=== PATIENT | female | born 1965 | race Caucasian/White ===

== ENCOUNTER → 2020-10-09 | Day surgery (SDC) | payer OTHER ==
[~2020-10-09] MED LIST: AMLODIPINE BESY10 MG PO; COLESTID 1GM TAB1 GM PO; LAMICTAL100 MG PO; LISINOPRIL-HCT1 EAC1 PO; PHENERGAN25 M1 PO; PRINIVIL10 MG PO; PROBIOTIC1 EACH PO; PROTONIX 40MG T40 MG PO; VITAMIN D310 MCG PO; XANAX0.25 MG PO
== END | disposition home or self-care (01) ==
LOC: FAS 06:58
DX: K29.50 Unspecified chronic gastritis without bleeding (principal); K21.9 Gastro-esophageal reflux disease without esophagitis; K31.89 Other diseases of stomach and duodenum; J30.9 Allergic rhinitis, unspecified; I10 Essential (primary) hypertension; E78.5 Hyperlipidemia, unspecified; F41.8 Other specified anxiety disorders; M19.90 Unspecified osteoarthritis, unspecified site; Z80.0 Family history of malignant neoplasm of digestive organs; Z86.010 Personal history of colon polyps; Z87.891 Personal history of nicotine dependence; Z88.8 Allergy status to other drugs, medicaments and biological substances
CPT/HCPCS: J2250; J2704; J7120